=== PATIENT | male | born 1955 | race Caucasian/White ===

== ENCOUNTER 2016-02-09 18:17 | Inpatient (IN) | payer BC ==
[~2016-02-09] VITALS: Ht 167.6 cm; Wt 51.7 kg
[2016-02-09] MEDS ORDERED: IV NS 0.9% 1,000 ML ONE ×2 (19:18→20:02)
[2016-02-09] MEDS ORDERED: IV NS 0.9% 1,000 ML BAG IV ONE ×3 (19:30→21:30)
[2016-02-09 19:39] LABS: BASOPHILS % (AUTO) 0.2 % (0.0-2.0); DIFF TOTAL % 100 %; EOSINOPHILS % (AUTO) 0.3 % (0.0-6.0); HEMATOCRIT 29 % (39-51); HEMOGLOBIN 9.8 g/dL (13.5-17.5); LYMPHOCYTES # (AUTO) 0.8 /CMM (0.8-4.8); LYMPHOCYTES % (AUTO) 9.7 % (20.0-44.0); MEAN CORPUSCULAR HEMOGLOBIN 31 PG (26.0-33.0); MEAN CORPUSCULAR HGB CONC 34 g/dl (31.0-36.0); MEAN CORPUSCULAR VOLUME 91 fL (80-96); MONOCYTES # (AUTO) 0.3 /CMM (0.1-1.30); MONOCYTES % (AUTO) 4.1 % (2.0-12.0); NEUTROPHILS # (AUTO) 7.4 /CMM (1.8-8.9); NEUTROPHILS % (AUTO) 85.7 % (43.0-81.0); PLATELET COUNT (AUTO) 113 /CMM (150-450); RED BLOOD CELL COUNT(AUTO) 3.14 MIL/uL (4.5-6.0); WHITE BLOOD COUNT (AUTO) 8.5 K/uL (4.3-11.0)
[2016-02-09 19:52] LABS: ANION GAP 5 (5-14); CALCIUM, SERUM 7.9 mg/dL (8.5-10.1); CARBON DIOXIDE 35 mmol/L (21-32); CHLORIDE 116 mmol/L (98-107); CREATININE 0.5 mg/dL (0.6-1.3); GFR 170 mL/min (>60); GLUCOSE 98 mg/dL (74-106); POTASSIUM 3.8 mmol/L (3.5-5.1); SODIUM SERUM 152 mmol/L (136-145); UREA NITROGEN, BLOOD 37 mg/dL (7-18)
[2016-02-09 19:55] LABS: INR 1.03 (0.87-1.13); PROTHROMBIN TIME 10.8 SECS (9.5-12.7)
[2016-02-09 19:57] LABS: ALANINE AMINOTRANSFERASE 269 U/L (12-78); ALBUMIN 2.4 g/dL (3.4-5.0); ASPARTATE AMINOTRANSFERASE 125 U/L (15-37); BILIRUBIN,DIRECT 0.1 mg/dL (0.0-0.2); BILIRUBIN,TOTAL 0.2 mg/dL (0.2-1.0); INDIRECT BILIRUBIN 0.1 mg/dL (0.0-1.1); TOTAL PROTEIN, SERUM 4.7 g/dL (6.4-8.2)
[2016-02-09 19:59] LABS: TROPONIN I < 0.017 ng/mL (0.00-0.056)
[2016-02-09] MEDS ORDERED: IV SET PRIMARY 1 EA INFUS.SET MC ONE ×2 (20:02→21:11)
[2016-02-09 20:08] LABS: LACTIC ACID 0.7 mmol/L (0.4-2.0)
[2016-02-09 20:53] LABS: THYROID STIMULATING HORMONE 1.334 uIU/mL (0.358-3.74)
[2016-02-09] MEDS ORDERED: Z GUARD REMEDY 2 OZ OINT TP PRN (22:30)
[2016-02-09] MEDS ORDERED: HYDROCODONE/APAP 5/325MG 1 EACH TABLET PO PRN (22:30)
[2016-02-09] MEDS ORDERED: ZOLPIDEM TARTRATE 5 MG TABLET PO PRN (22:30)
[2016-02-09] MEDS ORDERED: ACETAMINOPHEN 325 MG TABLET PO PRN (22:30)
[2016-02-09] MEDS ORDERED: ONDANSETRON HCL/PF 4 MG/2 ML VIAL IVP PRN (22:30)
[2016-02-09] MEDS ORDERED: MAG HYDROX/AL HYDROX/SIMETH 30 ML UDC PO PRN (22:30)
[2016-02-09 23:39] LABS: ADD UA MICROSCOPIC NO; KETONES,URINE NEGATIVE (NEGATIVE); LEUKOCYTE ESTERASE ,URINE NEGATIVE (NEGATIVE)
[2016-02-09 23:52] LABS: PHENCYCLIDINE SCREEN,URINE NEGATIVE (NEGATIVE)
[2016-02-09 23:53] LABS: CANNABINOID, URINE POSITIVE (NEGATIVE)
[2016-02-10] VITALS (7 sets, daily range): BP systolic 84–130; BP diastolic 35–72
[2016-02-10] MEDS ORDERED: IV SET PRIMARY PUMP SET 1 EA INFUS.SET MC ONE ×2 (01:25→10:04)
[2016-02-10] MEDS ORDERED: IV D5/0.45 NACL 1,000 ML IV ONE (01:25)
[2016-02-10] MEDS: IV D5/0.45 NACL 1,000 ML IV PRN ×2 (01:36→17:17)
[2016-02-10] MEDS ORDERED: LEVO137T24 PO (02:00)
[2016-02-10 06:36] LABS: BASOPHILS % (AUTO) 0.2 % (0.0-2.0); DIFF TOTAL % 100 %; EOSINOPHILS % (AUTO) 0.6 % (0.0-6.0); HEMATOCRIT 28 % (39-51); HEMOGLOBIN 9.4 g/dL (13.5-17.5); LYMPHOCYTES # (AUTO) 0.9 /CMM (0.8-4.8); LYMPHOCYTES % (AUTO) 17.4 % (20.0-44.0); MEAN CORPUSCULAR HEMOGLOBIN 32 PG (26.0-33.0); MEAN CORPUSCULAR HGB CONC 34 g/dl (31.0-36.0); MEAN CORPUSCULAR VOLUME 92 fL (80-96); MONOCYTES # (AUTO) 0.4 /CMM (0.1-1.30); MONOCYTES % (AUTO) 6.6 % (2.0-12.0); NEUTROPHILS # (AUTO) 4.1 /CMM (1.8-8.9); NEUTROPHILS % (AUTO) 75.2 % (43.0-81.0); PLATELET COUNT (AUTO) 100 /CMM (150-450); WHITE BLOOD COUNT (AUTO) 5.4 K/uL (4.3-11.0)
[2016-02-10 07:02] LABS: CALCIUM, SERUM 7.8 mg/dL (8.5-10.1); CREATININE 0.6 mg/dL (0.6-1.3); PHOSPHORUS 2.8 mg/dL (2.5-4.9); POTASSIUM 3.7 mmol/L (3.5-5.1)
[2016-02-10] MEDS: PANTOPRAZOLE 40 MG TABLET.DR PO SCH (07:30)
[2016-02-10] MEDS ORDERED: LEVO88TA5 PO (08:19)
[2016-02-10] MEDS: ENOXAPARIN SODIUM 40 MG/0.4 ML DISP.SYRIN SQ SCH (09:30)
[2016-02-10] MEDS ORDERED: IV NS 0.9% 1,000 ML IV PRN (10:00)
[2016-02-10 21:18] LABS: ABG BASE EXCESS -0.8 mmol/L; ABG HCO3 26.8 mmol/L; ABG PCO2 57.6 mmHg (35.0-45.0); ABG PH 7.286 (7.350-7.450); ABG PO2 61.7 mmHg (75.0-100.0); ABG TOTAL HEMOGLOBIN 13.4 G/dL (13.5-18.0); ALLEN TEST Pass; O2Hb 86.6 % (94.0-97.0)
[2016-02-10] MEDS ORDERED: FUROSEMIDE 40 MG/4 ML VIAL IV STA (23:06)
[2016-02-10] MEDS ORDERED: FUROSEMIDE 40 MG/4 ML VIAL ONE (23:07)
[2016-02-10] MEDS ORDERED: IOHEXOL-350 100 ML VIAL IV ONE (23:58)
[2016-02-10] MEDS ORDERED: CT SWABBABLE VALVE TRANS SET 1 EA INFUS.SET MC ONE (23:58)
[2016-02-10] MEDS ORDERED: IV NS 0.9% 250 ML IV ONE (23:58)
[2016-02-11] VITALS (9 sets, daily range): BP systolic 84–142; BP diastolic 51–81
[2016-02-11] MEDS: IV D5/0.45 NACL 1,000 ML IV PRN (05:42)
[2016-02-11 06:17] LABS: DIFF TOTAL % 100 %; HEMATOCRIT 42 % (39-51); HEMOGLOBIN 13.6 g/dL (13.5-17.5); LYMPHOCYTES # (AUTO) 0.4 /CMM (0.8-4.8); LYMPHOCYTES % (AUTO) 8.3 % (20.0-44.0); MEAN CORPUSCULAR HEMOGLOBIN 30 PG (26.0-33.0); MEAN CORPUSCULAR HGB CONC 33 g/dl (31.0-36.0); MEAN CORPUSCULAR VOLUME 92 fL (80-96); MONOCYTES # (AUTO) 0.1 /CMM (0.1-1.30); MONOCYTES % (AUTO) 2.4 % (2.0-12.0); NEUTROPHILS # (AUTO) 4.6 /CMM (1.8-8.9); NEUTROPHILS % (AUTO) 89.3 % (43.0-81.0); PLATELET COUNT (AUTO) 137 /CMM (150-450); RED BLOOD CELL COUNT(AUTO) 4.53 MIL/uL (4.5-6.0); WHITE BLOOD COUNT (AUTO) 5.2 K/uL (4.3-11.0)
[2016-02-11 06:20] LABS: CALCIUM, SERUM 8.2 mg/dL (8.5-10.1); CREATININE 1.8 mg/dL (0.6-1.3); PHOSPHORUS 4.6 mg/dL (2.5-4.9); POTASSIUM 4.2 mmol/L (3.5-5.1)
[2016-02-11 06:25] LABS: PREALBUMIN 19.2 MG/DL (18.0-35.7)
[2016-02-11] MEDS: PANTOPRAZOLE 40 MG TABLET.DR PO SCH (08:28)
[2016-02-11] MEDS: ENOXAPARIN SODIUM 40 MG/0.4 ML DISP.SYRIN SQ SCH (08:28)
[2016-02-11] MEDS: LEVOTHYROXINE SODIUM 88 MCG TABLET PO SCH (08:28)
[2016-02-11] MEDS: IV D5W 1,000 ML IV PRN ×2 (09:48→22:03)
[2016-02-11 10:01] LABS: ABG BASE EXCESS -0.8 mmol/L; ABG HCO3 25.3 mmol/L; ABG PCO2 47.5 mmHg (35.0-45.0); ABG PH 7.344 (7.350-7.450); ABG PO2 76.6 mmHg (75.0-100.0); ALLEN TEST Pass; AaDO2 81.5 mmHg; O2Hb 93.1 % (94.0-97.0)
[2016-02-11] MEDS ORDERED: Magnesium 1 GM/2 ML VIAL IV ONE (10:30)
[2016-02-11] MEDS ORDERED: IV D5/0.45 NACL 1,000 ML IV PRN (10:30)
[2016-02-11] MEDS ORDERED: SECONDARY IV SET 1 EA INFUS.SET MC ONE ×3 (11:05→21:56)
[2016-02-11] MEDS: Magnesium 1GM/D5W 100ML PREMIX 100 ML IV SCH ×2 (11:10→12:15)
[2016-02-11] MEDS: PIPERACILLIN /TAZOBACTAM 2.25 G in IV D5W 50 ML IV SCH ×3 (13:51→23:40)
[2016-02-11 20:15] LABS: ABG BASE EXCESS -0.6 mmol/L; ABG HCO3 30.5 mmol/L; ABG PCO2 87.8 mmHg (35.0-45.0); ABG PH 7.158 (7.350-7.450); ABG PO2 81.2 mmHg (75.0-100.0); ABG TOTAL HEMOGLOBIN 12.9 G/dL (13.5-18.0); ALLEN TEST Pass
[2016-02-11] MEDS ORDERED: CEFTRIAXONE 1 G VIAL ONE (21:47)
[2016-02-11] MEDS ORDERED: IV D5W 100 ML IV ONE (21:48)
[2016-02-11] MEDS: CEFTRIAXONE 2 G in IV D5W 100 ML IV SCH (21:55)
[2016-02-11 22:56] LABS: ABG BASE EXCESS 1.2 mmol/L; ABG PCO2 61.7 mmHg (35.0-45.0); ABG PO2 83.2 mmHg (75.0-100.0); ABG TOTAL HEMOGLOBIN 12.3 G/dL (13.5-18.0); ALLEN TEST Pass; AaDO2 568.1 mmHg; O2Hb 93.4 % (94.0-97.0)
[2016-02-12] VITALS (7 sets, daily range): BP systolic 93–144; BP diastolic 53–76
[2016-02-12] MEDS: PIPERACILLIN /TAZOBACTAM 2.25 G in IV D5W 50 ML IV SCH ×3 (05:17→17:07)
[2016-02-12 05:55] LABS: BASOPHILS % (AUTO) 0.3 % (0.0-2.0); DIFF TOTAL % 100 %; EOSINOPHILS % (AUTO) 0.2 % (0.0-6.0); HEMATOCRIT 32 % (39-51); HEMOGLOBIN 10.8 g/dL (13.5-17.5); LYMPHOCYTES # (AUTO) 0.8 /CMM (0.8-4.8); LYMPHOCYTES % (AUTO) 12.5 % (20.0-44.0); MEAN CORPUSCULAR HEMOGLOBIN 30 PG (26.0-33.0); MEAN CORPUSCULAR HGB CONC 33 g/dl (31.0-36.0); MEAN CORPUSCULAR VOLUME 91 fL (80-96); MONOCYTES # (AUTO) 0.1 /CMM (0.1-1.30); MONOCYTES % (AUTO) 1.4 % (2.0-12.0); NEUTROPHILS # (AUTO) 5.8 /CMM (1.8-8.9); NEUTROPHILS % (AUTO) 85.6 % (43.0-81.0); PLATELET COUNT (AUTO) 117 /CMM (150-450); RED BLOOD CELL COUNT(AUTO) 3.55 MIL/uL (4.5-6.0); WHITE BLOOD COUNT (AUTO) 6.8 K/uL (4.3-11.0)
[2016-02-12 06:35] LABS: ALBUMIN 1.9 g/dL (3.4-5.0); BILIRUBIN,TOTAL 0.2 mg/dL (0.2-1.0); CALCIUM, SERUM 8.5 mg/dL (8.5-10.1); CREATININE 2.6 mg/dL (0.6-1.3); PHOSPHORUS 4.1 mg/dL (2.5-4.9); POTASSIUM 4.3 mmol/L (3.5-5.1); TOTAL PROTEIN, SERUM 5.2 g/dL (6.4-8.2)
[2016-02-12 07:08] LABS: ADD UA MICROSCOPIC NO; CREATININE, URINE 40.8 MG/DL (30.0-125.0); KETONES,URINE NEGATIVE (NEGATIVE); LEUKOCYTE ESTERASE ,URINE NEGATIVE (NEGATIVE); URINE TOTAL PROTEIN 15.6 mg/dL (0-11.9)
[2016-02-12] MEDS: LEVOTHYROXINE SODIUM 88 MCG TABLET PO SCH (07:30)
[2016-02-12] MEDS: PANTOPRAZOLE 40 MG TABLET.DR PO SCH (07:30)
[2016-02-12] MEDS: ENOXAPARIN SODIUM 40 MG/0.4 ML DISP.SYRIN SQ SCH (08:50)
[2016-02-12 09:11] LABS: ABG BASE EXCESS 1.5 mmol/L; ABG HCO3 27.2 mmol/L; ABG PCO2 47.4 mmHg (35.0-45.0); ABG PH 7.376 (7.350-7.450); ABG PO2 63.1 mmHg (75.0-100.0); ABG TOTAL HEMOGLOBIN 11.5 G/dL (13.5-18.0); AaDO2 240.1 mmHg
[2016-02-12] MEDS: IV D5W 1,000 ML IV PRN (11:21)
[2016-02-12] MEDS ORDERED: SECONDARY IV SET 1 EA INFUS.SET MC ONE (12:29)
[2016-02-12] MEDS: ALBUMIN 25% 25 GM in PREMIX 1 EA IV SCH ×2 (13:16→17:52)
[2016-02-12] MEDS: CEFTRIAXONE 2 G in IV D5W 100 ML IV SCH (22:02)
[2016-02-13] VITALS: BP_SYST 114; BP_SYST 123; BP_DIAS 56; BP_DIAS 64
[2016-02-13] MEDS: PIPERACILLIN /TAZOBACTAM 2.25 G in IV D5W 50 ML IV SCH ×2 (00:01→05:00)
[2016-02-13] MEDS: ALBUMIN 25% 25 GM in PREMIX 1 EA IV SCH ×2 (00:01→05:00)
[2016-02-13] MEDS: IV D5W 1,000 ML IV PRN ×2 (02:45→21:50)
[2016-02-13 04:00] VITALS: BP 139/70
[2016-02-13 07:35] LABS: CALCIUM, SERUM 8.8 mg/dL (8.5-10.1); CREATININE 1.8 mg/dL (0.6-1.3); PHOSPHORUS 3.2 mg/dL (2.5-4.9)
[2016-02-13 07:42] LABS: BASOPHILS % (AUTO) 0.3 % (0.0-2.0); DIFF TOTAL % 100 %; EOSINOPHILS % (AUTO) 0.7 % (0.0-6.0); HEMATOCRIT 27 % (39-51); HEMOGLOBIN 9.1 g/dL (13.5-17.5); LYMPHOCYTES # (AUTO) 0.6 /CMM (0.8-4.8); LYMPHOCYTES % (AUTO) 11.6 % (20.0-44.0); MEAN CORPUSCULAR HEMOGLOBIN 31 PG (26.0-33.0); MEAN CORPUSCULAR HGB CONC 34 g/dl (31.0-36.0); MEAN CORPUSCULAR VOLUME 92 fL (80-96); MONOCYTES # (AUTO) 0.3 /CMM (0.1-1.30); MONOCYTES % (AUTO) 5.4 % (2.0-12.0); NEUTROPHILS # (AUTO) 4.2 /CMM (1.8-8.9); PLATELET COUNT (AUTO) 86 /CMM (150-450); RED BLOOD CELL COUNT(AUTO) 2.92 MIL/uL (4.5-6.0); WHITE BLOOD COUNT (AUTO) 5.2 K/uL (4.3-11.0)
[2016-02-13 07:48] LABS: POTASSIUM 3.3 mmol/L (3.5-5.1)
[2016-02-13 08:00] VITALS: BP 100/61
[2016-02-13] MEDS: PANTOPRAZOLE 40 MG TABLET.DR PO SCH (08:00)
[2016-02-13] MEDS: LEVOTHYROXINE SODIUM 88 MCG TABLET PO SCH (08:01)
[2016-02-13] MEDS: ENOXAPARIN SODIUM 40 MG/0.4 ML DISP.SYRIN SQ SCH (08:02)
[2016-02-13 08:43] LABS: ABG BASE EXCESS 3.9 mmol/L; ABG HCO3 30.5 mmol/L; ABG PCO2 57.5 mmHg (35.0-45.0); ABG PH 7.343 (7.350-7.450); ABG PO2 219.4 mmHg (75.0-100.0); ABG TOTAL HEMOGLOBIN 9.5 G/dL (13.5-18.0); ALLEN TEST Pass; AaDO2 436.1 mmHg
[2016-02-13] MEDS: ACETYLCYSTEINE 20% SOLN 800 MG/4 ML VIAL NEB SCH ×2 (09:31→15:07)
[2016-02-13] MEDS: ALBUTEROL FS 2.5 MG/0.5 ML VIAL.NEB NEB PRN ×2 (09:31→15:07)
[2016-02-13] MEDS: IPRATROPIUM NEB FS 0.5 MG/2.5 ML AMPUL.NEB NEB PRN ×2 (09:31→15:08)
[2016-02-13] MEDS ORDERED: SECONDARY IV SET 1 EA INFUS.SET MC ONE (10:08)
[2016-02-13 10:09] LABS: IRON, SERUM 25 ug/dl (50-175); PERCENT SATURATION 22 % (14-33); TOTAL IRON BINDING CAPACITY 113 ug/dl (250-450)
[2016-02-13] MEDS: POTASSIUM CL. PREMIX PERIPHER. 50 ML IV SCH ×2 (10:11→11:03)
[2016-02-13 10:15] LABS: TROPONIN I < 0.017 ng/mL (0.00-0.056)
[2016-02-13 11:10] LABS: BAND % (MANUAL) 9 % (0.0-5.0); EOSINOPHILS % (MANUAL) 1 % (0-4); LYMPHOCYTES % (MANUAL) 28 % (16-48); METAMYELOCYTES % 4 % (0-0)
[2016-02-13 11:11] LABS: ANISOCYTOSIS 2+; OVALOCYTES 1+; PLATELET ESTIMATE DECREASED
[2016-02-13] MEDS ORDERED: FEE PK DOSING 1 MIN EA MC ONE (11:52)
[2016-02-13 12:00] VITALS: BP 114/65
[2016-02-13] MEDS ORDERED: VANCOMYCIN 1 GM in IV D5W 250 ML IV SCH (12:00)
[2016-02-13] MEDS: PIPERACILLIN /TAZOBACTAM 3.375 G in IV D5W 50 ML IV SCH ×2 (12:18→17:10)
[2016-02-13 13:23] LABS: *SPE ALBUMIN 2.2 g/dL (2.9-4.4)
[2016-02-13 16:00] VITALS: BP 116/80
[2016-02-13 20:00] VITALS: BP 114/56
[2016-02-13] MEDS ORDERED: IV SET PRIMARY PUMP SET 1 EA INFUS.SET MC ONE (20:05)
[2016-02-14] VITALS: BP 115/52
[2016-02-14] MEDS: ALBUTEROL FS 2.5 MG/0.5 ML VIAL.NEB NEB PRN ×4 (00:10→23:33)
[2016-02-14] MEDS: ACETYLCYSTEINE 20% SOLN 800 MG/4 ML VIAL NEB SCH ×4 (00:10→23:34)
[2016-02-14] MEDS: PIPERACILLIN /TAZOBACTAM 3.375 G in IV D5W 50 ML IV SCH ×4 (00:19→18:24)
[2016-02-14 04:00] VITALS: BP 156/63
[2016-02-14] MEDS: VANCOMYCIN 0.75 GM in IV D5W 250 ML IV SCH (07:00)
[2016-02-14 07:03] LABS: BASOPHILS % (AUTO) 0.3 % (0.0-2.0); DIFF TOTAL % 100 %; EOSINOPHILS # (AUTO) 0.1 /CMM (0.0-0.7); EOSINOPHILS % (AUTO) 1.7 % (0.0-6.0); HEMATOCRIT 27 % (39-51); HEMOGLOBIN 9.1 g/dL (13.5-17.5); LYMPHOCYTES # (AUTO) 0.6 /CMM (0.8-4.8); LYMPHOCYTES % (AUTO) 8.8 % (20.0-44.0); MEAN CORPUSCULAR HEMOGLOBIN 31 PG (26.0-33.0); MEAN CORPUSCULAR HGB CONC 34 g/dl (31.0-36.0); MEAN CORPUSCULAR VOLUME 92 fL (80-96); MONOCYTES # (AUTO) 0.4 /CMM (0.1-1.30); MONOCYTES % (AUTO) 5.8 % (2.0-12.0); NEUTROPHILS # (AUTO) 5.9 /CMM (1.8-8.9); NEUTROPHILS % (AUTO) 83.4 % (43.0-81.0); PLATELET COUNT (AUTO) 85 /CMM (150-450); RED BLOOD CELL COUNT(AUTO) 2.93 MIL/uL (4.5-6.0); WHITE BLOOD COUNT (AUTO) 7.1 K/uL (4.3-11.0)
[2016-02-14 07:21] LABS: CALCIUM, SERUM 8.7 mg/dL (8.5-10.1); PHOSPHORUS 4.7 mg/dL (2.5-4.9); POTASSIUM 3.6 mmol/L (3.5-5.1)
[2016-02-14] MEDS: LEVOTHYROXINE SODIUM 88 MCG TABLET PO SCH (07:30)
[2016-02-14] MEDS: PANTOPRAZOLE 40 MG TABLET.DR PO SCH (07:30)
[2016-02-14 08:00] VITALS: BP 125/74
[2016-02-14] MEDS: IV D5W 1,000 ML IV PRN ×2 (08:44→20:16)
[2016-02-14] MEDS: ENOXAPARIN SODIUM 40 MG/0.4 ML DISP.SYRIN SQ SCH (08:54)
[2016-02-14 09:10] LABS: ANISOCYTOSIS 2+; BAND % (MANUAL) 16 % (0.0-5.0); EOSINOPHILS % (MANUAL) 2 % (0-4); LYMPHOCYTES % (MANUAL) 7 % (16-48); PLATELET ESTIMATE DECREASED
[2016-02-14 11:23] LABS: PTH, INTACT 36 pg/mL (15-65)
[2016-02-14 12:00] VITALS: BP 124/69
[2016-02-14] MEDS: LANOLIN/MIN OIL/PETROLAT,WHT 3.5 GM TUBE EACHEYE PRN (14:24)
[2016-02-14] MEDS: ENOXAPARIN SODIUM 30 MG/0.3 ML DISP.SYRIN SQ SCH (15:00)
[2016-02-14] MEDS ORDERED: ACETYLCYSTEINE 20% SOLN 800 MG/4 ML VIAL NEB SCH (15:30)
[2016-02-14 16:00] VITALS: BP 107/62
[2016-02-14 20:00] VITALS: BP 122/63
[2016-02-14] MEDS: IPRATROPIUM NEB FS 0.5 MG/2.5 ML AMPUL.NEB NEB PRN (23:33)
[2016-02-15] VITALS: BP 123/65
[2016-02-15] MEDS: VANCOMYCIN 0.75 GM in IV D5W 250 ML IV SCH ×2
[2016-02-15] MEDS: PIPERACILLIN /TAZOBACTAM 3.375 G in IV D5W 50 ML IV SCH ×3 (00:38→11:34)
[2016-02-15 04:00] VITALS: BP 137/76
[2016-02-15] MEDS: ALBUTEROL FS 2.5 MG/0.5 ML VIAL.NEB NEB PRN ×2 (07:11→15:26)
[2016-02-15] MEDS: ACETYLCYSTEINE 20% SOLN 800 MG/4 ML VIAL NEB SCH ×3 (07:11→23:44)
[2016-02-15] MEDS: LEVOTHYROXINE SODIUM 88 MCG TABLET PO SCH (07:30)
[2016-02-15] MEDS: PANTOPRAZOLE 40 MG TABLET.DR PO SCH (07:30)
[2016-02-15 08:00] VITALS: BP_SYST 114; BP_SYST 137; BP_DIAS 67; BP_DIAS 76
[2016-02-15 09:03] LABS: CALCIUM, SERUM 8.7 mg/dL (8.5-10.1); CREATININE 3.7 mg/dL (0.6-1.3); POTASSIUM 3.3 mmol/L (3.5-5.1)
[2016-02-15] MEDS: IV D5W 1,000 ML IV PRN (11:35)
[2016-02-15 12:00] VITALS: BP 108/58
[2016-02-15] MEDS: MEROPENEM 500 MG in IV NS 0.9% 50 ML IV SCH ×2 (13:18→23:28)
[2016-02-15] MEDS ORDERED: SECONDARY IV SET 1 EA INFUS.SET MC ONE ×3 (13:19→23:15)
[2016-02-15] MEDS: ENOXAPARIN SODIUM 30 MG/0.3 ML DISP.SYRIN SQ SCH (15:35)
[2016-02-15 16:00] VITALS: BP 104/62
[2016-02-15] MEDS ORDERED: VANCOMYCIN 0.75 GM in IV D5W 250 ML IV SCH (18:00)
[2016-02-15 18:39] LABS: KETONES,URINE NEGATIVE (NEGATIVE); LEUKOCYTE ESTERASE ,URINE NEGATIVE (NEGATIVE); PH,URINE 7.5 (5.0-8.0)
[2016-02-15 18:42] LABS: CREATININE, URINE 28.6 MG/DL (30.0-125.0); URINE TOTAL PROTEIN 10.9 mg/dL (0-11.9)
[2016-02-15 18:58] LABS: ADD UA MICROSCOPIC YES
[2016-02-15 19:23] LABS: ADD URINE CULTURE NO; WBC,URINE 0-2 /HPF (0-3)
[2016-02-15 20:00] VITALS: BP 137/62
[2016-02-15] MEDS: POTASSIUM CL. PREMIX PERIPHER. 50 ML IV SCH ×2 (21:03→22:50)
[2016-02-16] VITALS: BP 104/46
[2016-02-16 04:00] VITALS: BP 103/50
[2016-02-16] MEDS: IV D5W 1,000 ML IV PRN ×2 (05:52→23:37)
[2016-02-16] MEDS: ACETYLCYSTEINE 20% SOLN 800 MG/4 ML VIAL NEB SCH ×3 (07:28→23:59)
[2016-02-16] MEDS: LEVOTHYROXINE SODIUM 88 MCG TABLET PO SCH (07:30)
[2016-02-16] MEDS: PANTOPRAZOLE 40 MG TABLET.DR PO SCH (07:30)
[2016-02-16 07:38] LABS: CALCIUM, SERUM 8.7 mg/dL (8.5-10.1); CREATININE 4.4 mg/dL (0.6-1.3); POTASSIUM 3.6 mmol/L (3.5-5.1)
[2016-02-16 08:00] VITALS: BP 122/69
[2016-02-16] MEDS ORDERED: VANCOMYCIN 0.75 GM in IV D5W 250 ML IV SCH (09:00)
[2016-02-16 12:00] VITALS: BP 110/67
[2016-02-16 12:13] LABS: ABG BASE EXCESS 1.2 mmol/L; ABG HCO3 26.4 mmol/L; ABG PCO2 44.6 mmHg (35.0-45.0); ABG PO2 77.2 mmHg (75.0-100.0); ABG TOTAL HEMOGLOBIN 10.8 G/dL (13.5-18.0); ALLEN TEST Pass; AaDO2 98.8 mmHg
[2016-02-16] MEDS: MEROPENEM 500 MG in IV NS 0.9% 50 ML IV SCH ×2 (12:16→23:25)
[2016-02-16] MEDS: ENOXAPARIN SODIUM 30 MG/0.3 ML DISP.SYRIN SQ SCH (15:40)
[2016-02-16 16:00] VITALS: BP 117/63
[2016-02-16 17:50] LABS: BASOPHILS % (AUTO) 0.2 % (0.0-2.0); DIFF TOTAL % 100 %; EOSINOPHILS # (AUTO) 0.2 /CMM (0.0-0.7); EOSINOPHILS % (AUTO) 2.1 % (0.0-6.0); HEMATOCRIT 31 % (39-51); HEMOGLOBIN 10.3 g/dL (13.5-17.5); LYMPHOCYTES # (AUTO) 0.8 /CMM (0.8-4.8); LYMPHOCYTES % (AUTO) 8.2 % (20.0-44.0); MEAN CORPUSCULAR HEMOGLOBIN 31 PG (26.0-33.0); MEAN CORPUSCULAR HGB CONC 34 g/dl (31.0-36.0); MEAN CORPUSCULAR VOLUME 91 fL (80-96); MONOCYTES # (AUTO) 0.3 /CMM (0.1-1.30); MONOCYTES % (AUTO) 3.4 % (2.0-12.0); NEUTROPHILS # (AUTO) 8.6 /CMM (1.8-8.9); NEUTROPHILS % (AUTO) 86.1 % (43.0-81.0); PLATELET COUNT (AUTO) 192 /CMM (150-450); RED BLOOD CELL COUNT(AUTO) 3.37 MIL/uL (4.5-6.0)
[2016-02-16 17:52] LABS: INR 1.03 (0.87-1.13); PROTHROMBIN TIME 11.1 SECS (9.5-12.7)
[2016-02-16 20:00] VITALS: BP 117/68
[2016-02-16] MEDS ORDERED: SECONDARY IV SET 1 EA INFUS.SET MC ONE (23:21)
[2016-02-16] MEDS: IPRATROPIUM NEB FS 0.5 MG/2.5 ML AMPUL.NEB NEB PRN (23:59)
[2016-02-17] VITALS: BP 106/57
[2016-02-17 04:00] VITALS: BP 120/55
[2016-02-17] MEDS: PANTOPRAZOLE 40 MG TABLET.DR PO SCH (06:42)
[2016-02-17] MEDS: LEVOTHYROXINE SODIUM 88 MCG TABLET PO SCH (06:42)
[2016-02-17 07:19] LABS: CREATININE 2.3 mg/dL (0.6-1.3); POTASSIUM 3.2 mmol/L (3.5-5.1)
[2016-02-17] MEDS: ALBUTEROL FS 2.5 MG/0.5 ML VIAL.NEB NEB PRN ×2 (07:58→13:45)
[2016-02-17] MEDS: ACETYLCYSTEINE 20% SOLN 800 MG/4 ML VIAL NEB SCH ×3 (07:58→23:01)
[2016-02-17 08:00] VITALS: BP 131/70
[2016-02-17 12:00] VITALS: BP 106/47
[2016-02-17] MEDS: MEROPENEM 500 MG in IV NS 0.9% 50 ML IV SCH (12:29)
[2016-02-17] MEDS ORDERED: IV SET PRIMARY PUMP SET 1 EA INFUS.SET MC ONE (13:23)
[2016-02-17] MEDS: POTASSIUM CL. PREMIX PERIPHER. 50 ML IV SCH ×3 (13:26→15:10)
[2016-02-17] MEDS: VANCOMYCIN 0.75 GM in IV D5W 250 ML IV SCH (14:07)
[2016-02-17] MEDS: IV D5W 1,000 ML IV PRN (14:07)
[2016-02-17] MEDS: ENOXAPARIN SODIUM 30 MG/0.3 ML DISP.SYRIN SQ SCH (15:11)
[2016-02-17 16:00] VITALS: BP 125/67
[2016-02-17 20:00] VITALS: BP 141/58
[2016-02-17] MEDS: IPRATROPIUM NEB FS 0.5 MG/2.5 ML AMPUL.NEB NEB PRN (23:01)
[2016-02-18] VITALS: BP_SYST 100; BP_SYST 115; BP_SYST 135; BP_DIAS 46; BP_DIAS 59; BP_DIAS 63
[2016-02-18] MEDS: MEROPENEM 500 MG in IV NS 0.9% 50 ML IV SCH ×2 (00:42→12:55)
[2016-02-18 04:00] VITALS: BP 101/60
[2016-02-18] MEDS: IV D5W 1,000 ML IV PRN (05:30)
[2016-02-18 06:23] LABS: BASOPHILS % (AUTO) 0.3 % (0.0-2.0); DIFF TOTAL % 100 %; EOSINOPHILS # (AUTO) 0.1 /CMM (0.0-0.7); EOSINOPHILS % (AUTO) 1.9 % (0.0-6.0); HEMATOCRIT 31 % (39-51); HEMOGLOBIN 10.3 g/dL (13.5-17.5); LYMPHOCYTES # (AUTO) 0.8 /CMM (0.8-4.8); LYMPHOCYTES % (AUTO) 10.9 % (20.0-44.0); MEAN CORPUSCULAR HEMOGLOBIN 31 PG (26.0-33.0); MEAN CORPUSCULAR HGB CONC 34 g/dl (31.0-36.0); MEAN CORPUSCULAR VOLUME 91 fL (80-96); MONOCYTES # (AUTO) 0.5 /CMM (0.1-1.30); MONOCYTES % (AUTO) 6.5 % (2.0-12.0); NEUTROPHILS # (AUTO) 5.8 /CMM (1.8-8.9); NEUTROPHILS % (AUTO) 80.4 % (43.0-81.0); PLATELET COUNT (AUTO) 263 /CMM (150-450); RED BLOOD CELL COUNT(AUTO) 3.37 MIL/uL (4.5-6.0); WHITE BLOOD COUNT (AUTO) 7.2 K/uL (4.3-11.0)
[2016-02-18 07:02] LABS: CALCIUM, SERUM 8.8 mg/dL (8.5-10.1); CREATININE 1.3 mg/dL (0.6-1.3); PHOSPHORUS 3.3 mg/dL (2.5-4.9); POTASSIUM 3.8 mmol/L (3.5-5.1)
[2016-02-18] MEDS: ACETYLCYSTEINE 20% SOLN 800 MG/4 ML VIAL NEB SCH ×3 (07:14→23:37)
[2016-02-18 08:00] VITALS: BP 117/69
[2016-02-18] MEDS: LEVOTHYROXINE SODIUM 88 MCG TABLET PO SCH (09:06)
[2016-02-18] MEDS: PANTOPRAZOLE 40 MG TABLET.DR PO SCH (09:07)
[2016-02-18 09:09] LABS: ABG BASE EXCESS 4.3 mmol/L; ABG HCO3 30.9 mmol/L; ABG PCO2 56.8 mmHg (35.0-45.0); ABG PH 7.354 (7.350-7.450); ABG PO2 83.4 mmHg (75.0-100.0); ALLEN TEST Pass; AaDO2 78.3 mmHg; O2Hb 94.1 % (94.0-97.0)
[2016-02-18 12:00] VITALS: BP_SYST 105; BP_SYST 123; BP_DIAS 61; BP_DIAS 75
[2016-02-18] MEDS: VANCOMYCIN 0.75 GM in IV D5W 250 ML IV SCH (14:47)
[2016-02-18] MEDS: ENOXAPARIN SODIUM 30 MG/0.3 ML DISP.SYRIN SQ SCH (14:53)
[2016-02-18] MEDS: LANOLIN/MIN OIL/PETROLAT,WHT 3.5 GM TUBE EACHEYE PRN (14:55)
[2016-02-18 16:00] VITALS: BP 138/70
[2016-02-18 20:00] VITALS: BP 135/63
[2016-02-18] MEDS: IPRATROPIUM NEB FS 0.5 MG/2.5 ML AMPUL.NEB NEB PRN (23:36)
[2016-02-18] MEDS: ALBUTEROL FS 2.5 MG/0.5 ML VIAL.NEB NEB PRN (23:36)
[2016-02-19] VITALS: BP 115/59
[2016-02-19] MEDS: MEROPENEM 500 MG in IV NS 0.9% 50 ML IV SCH ×2 (00:45→12:40)
[2016-02-19] MEDS: IV D5W 1,000 ML IV PRN ×2 (00:46→15:28)
[2016-02-19 04:00] VITALS: BP 134/62
[2016-02-19] MEDS: ACETYLCYSTEINE 20% SOLN 800 MG/4 ML VIAL NEB SCH ×3 (07:35→23:57)
[2016-02-19 08:00] VITALS: BP 114/62
[2016-02-19] MEDS: LEVOTHYROXINE SODIUM 88 MCG TABLET PO SCH (09:00)
[2016-02-19] MEDS: PANTOPRAZOLE 40 MG TABLET.DR PO SCH (09:00)
[2016-02-19 09:30] LABS: CALCIUM, SERUM 8.8 mg/dL (8.5-10.1); CREATININE 0.7 mg/dL (0.6-1.3); POTASSIUM 3.4 mmol/L (3.5-5.1)
[2016-02-19 12:00] VITALS: BP 137/62
[2016-02-19] MEDS: IPRATROPIUM NEB FS 0.5 MG/2.5 ML AMPUL.NEB NEB PRN (15:19)
[2016-02-19] MEDS: ALBUTEROL FS 2.5 MG/0.5 ML VIAL.NEB NEB PRN (15:19)
[2016-02-19] MEDS: ENOXAPARIN SODIUM 30 MG/0.3 ML DISP.SYRIN SQ SCH (15:27)
[2016-02-19] MEDS: VANCOMYCIN 0.75 GM in IV D5W 250 ML IV SCH (15:28)
[2016-02-19] MEDS ORDERED: POTASSIUM CHLORIDE 20 MEQ TAB.PRT.SR PO SCH (15:30)
[2016-02-19 16:00] VITALS: BP_SYST 115; BP_DIAS 46; BP_DIAS 64
[2016-02-19 20:00] VITALS: BP 114/61
[2016-02-20] VITALS: BP 109/54
[2016-02-20] MEDS ORDERED: VANCOMYCIN 0.75 GM in IV D5W 250 ML IV SCH (02:00)
[2016-02-20 04:00] VITALS: BP 157/61
[2016-02-20] MEDS: IV D5W 1,000 ML IV PRN ×2 (05:45→16:30)
[2016-02-20] MEDS: ACETYLCYSTEINE 20% SOLN 800 MG/4 ML VIAL NEB SCH ×3 (07:35→23:30)
[2016-02-20 08:00] VITALS: BP 133/71
[2016-02-20] MEDS: IPRATROPIUM NEB FS 0.5 MG/2.5 ML AMPUL.NEB NEB PRN ×2 (08:01→15:41)
[2016-02-20] MEDS: ALBUTEROL FS 2.5 MG/0.5 ML VIAL.NEB NEB PRN ×3 (08:01→23:30)
[2016-02-20] MEDS: PANTOPRAZOLE 40 MG TABLET.DR PO SCH (08:13)
[2016-02-20] MEDS: LEVOTHYROXINE SODIUM 88 MCG TABLET PO SCH (08:13)
[2016-02-20 08:14] LABS: CALCIUM, SERUM 8.4 mg/dL (8.5-10.1); CREATININE 0.8 mg/dL (0.6-1.3); POTASSIUM 3.3 mmol/L (3.5-5.1)
[2016-02-20 12:00] VITALS: BP 138/68
[2016-02-20] MEDS ORDERED: POTASSIUM CHLORIDE 20 MEQ POWDER PACKET PO ONE (12:30)
[2016-02-20 16:00] VITALS: BP 129/71
[2016-02-20] MEDS: ENOXAPARIN SODIUM 30 MG/0.3 ML DISP.SYRIN SQ SCH (16:31)
[2016-02-20 20:00] VITALS: BP 123/61
[2016-02-21] VITALS (8 sets, daily range): BP systolic 89–153; BP diastolic 47–86
[2016-02-21] MEDS: IV D5W 1,000 ML IV PRN ×2 (03:53→12:05)
[2016-02-21] MEDS: ACETYLCYSTEINE 20% SOLN 800 MG/4 ML VIAL NEB SCH ×3 (07:38→23:18)
[2016-02-21] MEDS: ALBUTEROL FS 2.5 MG/0.5 ML VIAL.NEB NEB PRN ×3 (07:38→23:17)
[2016-02-21] MEDS: IPRATROPIUM NEB FS 0.5 MG/2.5 ML AMPUL.NEB NEB PRN ×2 (07:38→15:30)
[2016-02-21 07:57] LABS: BASOPHILS % (AUTO) 0.2 % (0.0-2.0); DIFF TOTAL % 100 %; EOSINOPHILS # (AUTO) 0.2 /CMM (0.0-0.7); EOSINOPHILS % (AUTO) 1.9 % (0.0-6.0); HEMATOCRIT 30 % (39-51); HEMOGLOBIN 10.1 g/dL (13.5-17.5); LYMPHOCYTES # (AUTO) 1.1 /CMM (0.8-4.8); LYMPHOCYTES % (AUTO) 10.3 % (20.0-44.0); MEAN CORPUSCULAR HEMOGLOBIN 31 PG (26.0-33.0); MEAN CORPUSCULAR HGB CONC 34 g/dl (31.0-36.0); MEAN CORPUSCULAR VOLUME 91 fL (80-96); MONOCYTES # (AUTO) 0.5 /CMM (0.1-1.30); MONOCYTES % (AUTO) 4.4 % (2.0-12.0); NEUTROPHILS # (AUTO) 8.9 /CMM (1.8-8.9); NEUTROPHILS % (AUTO) 83.2 % (43.0-81.0); PLATELET COUNT (AUTO) 493 /CMM (150-450); RED BLOOD CELL COUNT(AUTO) 3.32 MIL/uL (4.5-6.0); WHITE BLOOD COUNT (AUTO) 10.6 K/uL (4.3-11.0)
[2016-02-21 08:16] LABS: CALCIUM, SERUM 8.6 mg/dL (8.5-10.1); PHOSPHORUS 3.7 mg/dL (2.5-4.9); POTASSIUM 3.9 mmol/L (3.5-5.1)
[2016-02-21] MEDS: PANTOPRAZOLE 40 MG TABLET.DR PO SCH (09:05)
[2016-02-21] MEDS: LEVOTHYROXINE SODIUM 88 MCG TABLET PO SCH (09:05)
[2016-02-21 10:06] LABS: ABG BASE EXCESS 10.1 mmol/L; ABG HCO3 35.6 mmol/L; ABG PCO2 53.4 mmHg (35.0-45.0); ABG PH 7.442 (7.350-7.450); ABG PO2 89.2 mmHg (75.0-100.0); ABG TOTAL HEMOGLOBIN 9.8 G/dL (13.5-18.0); ALLEN TEST Pass; AaDO2 83.7 mmHg; O2Hb 94.8 % (94.0-97.0)
[2016-02-21] MEDS ORDERED: SECONDARY IV SET 1 EA INFUS.SET MC ONE (11:23)
[2016-02-21] MEDS: Magnesium 1GM/D5W 100ML PREMIX 100 ML IV SCH ×2 (12:05→15:23)
[2016-02-21] MEDS: ENOXAPARIN SODIUM 30 MG/0.3 ML DISP.SYRIN SQ SCH (18:22)
[2016-02-21] MEDS: LANOLIN/MIN OIL/PETROLAT,WHT 3.5 GM TUBE EACHEYE PRN (18:26)
[2016-02-22] VITALS: BP 123/65
[2016-02-22] MEDS: IV D5W 1,000 ML IV PRN ×2 (02:17→17:22)
[2016-02-22 04:00] VITALS: BP 132/59
[2016-02-22 06:53] LABS: BASOPHILS % (AUTO) 0.1 % (0.0-2.0); DIFF TOTAL % 100 %; EOSINOPHILS # (AUTO) 0.1 /CMM (0.0-0.7); EOSINOPHILS % (AUTO) 1.1 % (0.0-6.0); HEMATOCRIT 30 % (39-51); HEMOGLOBIN 9.9 g/dL (13.5-17.5); LYMPHOCYTES # (AUTO) 1.3 /CMM (0.8-4.8); LYMPHOCYTES % (AUTO) 11.5 % (20.0-44.0); MEAN CORPUSCULAR HEMOGLOBIN 30 PG (26.0-33.0); MEAN CORPUSCULAR HGB CONC 33 g/dl (31.0-36.0); MEAN CORPUSCULAR VOLUME 91 fL (80-96); MONOCYTES # (AUTO) 0.3 /CMM (0.1-1.30); NEUTROPHILS # (AUTO) 9.4 /CMM (1.8-8.9); NEUTROPHILS % (AUTO) 84.3 % (43.0-81.0); PLATELET COUNT (AUTO) 484 /CMM (150-450); RED BLOOD CELL COUNT(AUTO) 3.26 MIL/uL (4.5-6.0); WHITE BLOOD COUNT (AUTO) 11.1 K/uL (4.3-11.0)
[2016-02-22 07:39] LABS: CALCIUM, SERUM 8.6 mg/dL (8.5-10.1); PHOSPHORUS 4.4 mg/dL (2.5-4.9); POTASSIUM 3.9 mmol/L (3.5-5.1)
[2016-02-22] MEDS: ACETYLCYSTEINE 20% SOLN 800 MG/4 ML VIAL NEB SCH ×3 (07:50→23:28)
[2016-02-22 08:00] VITALS: BP 155/86
[2016-02-22] MEDS: PANTOPRAZOLE 40 MG TABLET.DR PO SCH (08:11)
[2016-02-22] MEDS: LEVOTHYROXINE SODIUM 88 MCG TABLET PO SCH (08:11)
[2016-02-22 13:58] VITALS: BP 98/62
[2016-02-22 16:00] VITALS: BP 110/74
[2016-02-22] MEDS: ENOXAPARIN SODIUM 30 MG/0.3 ML DISP.SYRIN SQ SCH (17:15)
[2016-02-22] MEDS: MAGNESIUM HYDROXIDE 30 ML UDC PO PRN (17:22)
[2016-02-22] MEDS: SENNOSIDES/DOCUSATE SODIUM 1 TAB TABLET PO SCH (17:30)
[2016-02-22 20:00] VITALS: BP 94/38
[2016-02-22] MEDS: TAMSULOSIN 0.4 MG CAP.SR.24H PO SCH (22:26)
[2016-02-23] VITALS: BP 150/58
[2016-02-23 04:00] VITALS: BP 100/53
[2016-02-23] MEDS: LEVOTHYROXINE SODIUM 88 MCG TABLET PO SCH (07:36)
[2016-02-23] MEDS: PANTOPRAZOLE 40 MG TABLET.DR PO SCH (07:39)
[2016-02-23 08:00] VITALS: BP 96/50
[2016-02-23] MEDS: SENNOSIDES/DOCUSATE SODIUM 1 TAB TABLET PO SCH (08:02)
[2016-02-23] MEDS: ACETYLCYSTEINE 20% SOLN 800 MG/4 ML VIAL NEB SCH ×3 (08:25→23:20)
[2016-02-23] MEDS: IPRATROPIUM NEB FS 0.5 MG/2.5 ML AMPUL.NEB NEB PRN ×2 (08:30→16:00)
[2016-02-23] MEDS: ALBUTEROL FS 2.5 MG/0.5 ML VIAL.NEB NEB PRN ×2 (08:30→16:00)
[2016-02-23] MEDS ORDERED: PANT40TA2 PO (10:55)
[2016-02-23] MEDS ORDERED: ALBU2.5V13 NEB (10:55)
[2016-02-23] MEDS ORDERED: TAMS-12 PO (10:55)
[2016-02-23] MEDS ORDERED: SENN1TAB6 PO (10:55)
[2016-02-23] MEDS ORDERED: ENOX30DI SQ (10:55)
[2016-02-23] MEDS ORDERED: Ipratropium Bromide NEB (10:55)
[2016-02-23 12:00] VITALS: BP 97/53
[2016-02-23 16:00] VITALS: BP_SYST 126; BP_SYST 127; BP_DIAS 56; BP_DIAS 77
[2016-02-23] MEDS: ENOXAPARIN SODIUM 30 MG/0.3 ML DISP.SYRIN SQ SCH (16:19)
[2016-02-23 20:00] VITALS: BP 103/52
[2016-02-23] MEDS: TAMSULOSIN 0.4 MG CAP.SR.24H PO SCH (21:52)
[2016-02-24 04:00] VITALS: BP_SYST 110; BP_SYST 140; BP_DIAS 69
[2016-02-24] MEDS: PANTOPRAZOLE 40 MG TABLET.DR PO SCH (06:08)
[2016-02-24] MEDS: LEVOTHYROXINE SODIUM 88 MCG TABLET PO SCH (06:08)
[2016-02-24 08:00] VITALS: BP 120/60
[2016-02-24] MEDS: ACETYLCYSTEINE 20% SOLN 800 MG/4 ML VIAL NEB SCH ×3 (08:07→23:18)
[2016-02-24] MEDS: ALBUTEROL FS 2.5 MG/0.5 ML VIAL.NEB NEB PRN ×2 (08:10→23:18)
[2016-02-24] MEDS: IPRATROPIUM NEB FS 0.5 MG/2.5 ML AMPUL.NEB NEB PRN (08:10)
[2016-02-24] MEDS: SENNOSIDES/DOCUSATE SODIUM 1 TAB TABLET PO SCH (09:00)
[2016-02-24 16:00] VITALS: BP 94/62
[2016-02-24] MEDS: ENOXAPARIN SODIUM 30 MG/0.3 ML DISP.SYRIN SQ SCH (16:36)
[2016-02-24 20:00] VITALS: BP 103/52
[2016-02-24] MEDS: TAMSULOSIN 0.4 MG CAP.SR.24H PO SCH (21:52)
[2016-02-25] VITALS: BP 107/50
[2016-02-25 04:00] VITALS: BP 107/50
[2016-02-25 08:00] VITALS: BP 120/63
[2016-02-25] MEDS: IPRATROPIUM NEB FS 0.5 MG/2.5 ML AMPUL.NEB NEB PRN ×2 (08:55→23:35)
[2016-02-25] MEDS: ACETYLCYSTEINE 20% SOLN 800 MG/4 ML VIAL NEB SCH ×3 (08:55→23:35)
[2016-02-25] MEDS: ALBUTEROL FS 2.5 MG/0.5 ML VIAL.NEB NEB PRN (08:55)
[2016-02-25] MEDS: SENNOSIDES/DOCUSATE SODIUM 1 TAB TABLET PO SCH (09:21)
[2016-02-25] MEDS: LEVOTHYROXINE SODIUM 88 MCG TABLET PO SCH (09:21)
[2016-02-25] MEDS: PANTOPRAZOLE 40 MG TABLET.DR PO SCH (09:21)
[2016-02-25 16:00] VITALS: BP 126/57
[2016-02-25] MEDS: ENOXAPARIN SODIUM 30 MG/0.3 ML DISP.SYRIN SQ SCH (16:57)
[2016-02-25] MEDS: TAMSULOSIN 0.4 MG CAP.SR.24H PO SCH (21:00)
[2016-02-25] MEDS: MAGNESIUM HYDROXIDE 30 ML UDC PO PRN (21:26)
[2016-02-26] VITALS: BP 125/71
[2016-02-26] MEDS: ALBUTEROL FS 2.5 MG/0.5 ML VIAL.NEB NEB PRN (07:50)
[2016-02-26] MEDS: ACETYLCYSTEINE 20% SOLN 800 MG/4 ML VIAL NEB SCH ×2 (07:50→16:10)
[2016-02-26] MEDS: IPRATROPIUM NEB FS 0.5 MG/2.5 ML AMPUL.NEB NEB PRN (07:50)
[2016-02-26 08:00] VITALS: BP 118/63
[2016-02-26] MEDS: LEVOTHYROXINE SODIUM 88 MCG TABLET PO SCH (09:47)
[2016-02-26] MEDS: PANTOPRAZOLE 40 MG TABLET.DR PO SCH (09:47)
[2016-02-26] MEDS: SENNOSIDES/DOCUSATE SODIUM 1 TAB TABLET PO SCH (09:47)
[2016-02-26] MEDS ORDERED: HYDROGEL DRESSING 90 GM TUBE TP PRN (12:30)
[2016-02-26 16:00] VITALS: BP 122/66
[2016-02-26] MEDS: ACIDOPHILUS/BULGARICUS 1 EACH TAB.CHEW PO SCH (16:41)
[2016-02-26] MEDS: HYDROGEL DRESSING 90 GM TUBE TP SCH (16:42)
[2016-02-26] MEDS: ENOXAPARIN SODIUM 30 MG/0.3 ML DISP.SYRIN SQ SCH (16:46)
[2016-02-26 20:00] VITALS: BP 110/53
[2016-02-26] MEDS: AMOX/CLAVULANATE 875 MG TABLET PO SCH (21:07)
[2016-02-26] MEDS: TAMSULOSIN 0.4 MG CAP.SR.24H PO SCH (21:09)
[2016-02-27] MEDS: IPRATROPIUM NEB FS 0.5 MG/2.5 ML AMPUL.NEB NEB PRN (00:07)
[2016-02-27] MEDS: ACETYLCYSTEINE 20% SOLN 800 MG/4 ML VIAL NEB SCH ×4 (00:07→23:34)
[2016-02-27 04:00] VITALS: BP 122/46
[2016-02-27 08:00] VITALS: BP 113/53
[2016-02-27] MEDS: PANTOPRAZOLE 40 MG TABLET.DR PO SCH (08:53)
[2016-02-27] MEDS: LEVOTHYROXINE SODIUM 88 MCG TABLET PO SCH (08:53)
[2016-02-27] MEDS: AMOX/CLAVULANATE 875 MG TABLET PO SCH ×2 (08:53→21:44)
[2016-02-27] MEDS: ACIDOPHILUS/BULGARICUS 1 EACH TAB.CHEW PO SCH ×3 (08:53→17:11)
[2016-02-27] MEDS: SENNOSIDES/DOCUSATE SODIUM 1 TAB TABLET PO SCH (08:54)
[2016-02-27] MEDS: HYDROGEL DRESSING 90 GM TUBE TP SCH (08:56)
[2016-02-27] MEDS: SALINE NASAL SPRAY 0.65% 1 BOTTLE BOTTLE NS PRN ×2 (13:02→17:12)
[2016-02-27 16:00] VITALS: BP 131/66
[2016-02-27] MEDS: ENOXAPARIN SODIUM 40 MG/0.4 ML DISP.SYRIN SQ SCH (17:31)
[2016-02-27 20:00] VITALS: BP 112/50
[2016-02-27] MEDS ORDERED: AMOX/CLAVULANATE 875 MG TABLET ONE (21:38)
[2016-02-27] MEDS: TAMSULOSIN 0.4 MG CAP.SR.24H PO SCH (21:44)
[2016-02-27] MEDS: ALBUTEROL FS 2.5 MG/0.5 ML VIAL.NEB NEB PRN (23:34)
[2016-02-28 04:00] VITALS: BP 130/64
[2016-02-28] MEDS: ACETYLCYSTEINE 20% SOLN 800 MG/4 ML VIAL NEB SCH ×2 (07:32→15:23)
[2016-02-28] MEDS: IPRATROPIUM NEB FS 0.5 MG/2.5 ML AMPUL.NEB NEB PRN ×2 (07:32→15:23)
[2016-02-28] MEDS: ALBUTEROL FS 2.5 MG/0.5 ML VIAL.NEB NEB PRN ×2 (07:32→15:23)
[2016-02-28 08:00] VITALS: BP 122/66
[2016-02-28] MEDS: LEVOTHYROXINE SODIUM 88 MCG TABLET PO SCH (09:02)
[2016-02-28] MEDS: ACIDOPHILUS/BULGARICUS 1 EACH TAB.CHEW PO SCH ×3 (09:02→18:26)
[2016-02-28] MEDS: LANOLIN/MIN OIL/PETROLAT,WHT 3.5 GM TUBE EACHEYE PRN (09:03)
[2016-02-28] MEDS: SENNOSIDES/DOCUSATE SODIUM 1 TAB TABLET PO SCH (09:03)
[2016-02-28] MEDS: AMOX/CLAVULANATE 875 MG TABLET PO SCH ×2 (09:03→21:20)
[2016-02-28] MEDS: PANTOPRAZOLE 40 MG TABLET.DR PO SCH (09:03)
[2016-02-28] MEDS: HYDROGEL DRESSING 90 GM TUBE TP SCH (09:04)
[2016-02-28] MEDS: BOOST PLUS FOOD-CHOCLATE 237 ML BOX PO SCH ×2 (10:54→18:27)
[2016-02-28 16:00] VITALS: BP 125/58
[2016-02-28 20:00] VITALS: BP 106/49
[2016-02-28] MEDS: TAMSULOSIN 0.4 MG CAP.SR.24H PO SCH (21:20)
[2016-02-28] MEDS: ENOXAPARIN SODIUM 40 MG/0.4 ML DISP.SYRIN SQ SCH (21:20)
== END 2016-02-28 23:00 | DRG 682 ==
LOC: ER 18:21 → TELE-TD 23:30 → ICU 02-11 07:33 → TELE-TD 02-11 10:47 → TELE1 02-20 12:00 → MEDSG1 02-23 08:49
PROVIDERS: ADMIT Internal Medicine; ATTEND Internal Medicine
PROC: 5A09557 Assistance with Respiratory Ventilation, Greater than 96 Consecutive Hours, Continuous Positive Airway Pressure (ICD-10-PCS; principal; 2016-02-10)
DX: N17.0 Acute kidney failure with tubular necrosis (principal); J69.0 Pneumonitis due to inhalation of food and vomit; J96.02 Acute respiratory failure with hypercapnia; J96.01 Acute respiratory failure with hypoxia; K72.00 Acute and subacute hepatic failure without coma; E87.0 Hyperosmolality and hypernatremia; E44.0 Moderate protein-calorie malnutrition; J90 Pleural effusion, not elsewhere classified; E75.29 Other sphingolipidosis; J98.11 Atelectasis; N13.30 Unspecified hydronephrosis; E86.0 Dehydration; D63.8 Anemia in other chronic diseases classified elsewhere; E03.9 Hypothyroidism, unspecified; R00.1 Bradycardia, unspecified; Z86.73 Personal history of transient ischemic attack (TIA), and cerebral infarction without residual deficits; Z87.891 Personal history of nicotine dependence; R55 Syncope and collapse; I95.9 Hypotension, unspecified; E87.6 Hypokalemia; E88.09 Other disorders of plasma-protein metabolism, not elsewhere classified; R33.9 Retention of urine, unspecified; J01.90 Acute sinusitis, unspecified; K59.00 Constipation, unspecified; Z86.14 Personal history of Methicillin resistant Staphylococcus aureus infection; Z91.81 History of falling
CPT/HCPCS: 31720; 36415; 36600; 70450-TC; 71010-TC; 74000-TC; 80048-TC; 80053-TC; 80061-TC; 80076-TC; 80202-TC; 81000-TC; 82272-TC; 82550-TC; 82570-TC; 82803-TC; 82962-TC; 83540-TC; 83605-TC; 83735-TC; 83970; 84100-TC; 84134-TC; 84155; 84155-TC; 84165; 84300-TC; 84443-TC; 84484-TC; 85025-TC; 85378-TC; 85610-TC; 85730-TC; 87040-TC; 87070-TC; 87081-TC; 92526; 92611-TC; 93307-TC; 93880-TC; 94640-TC; 94660; 94668-TC; 94799-TC; 97001-TC; 97110-TC; 97116-TC; 97530-TC; A4216; A4349; A4606; A4623; A6248; G0434; J0696; J1650; J1940; J2185; J2543; J3370; J3475; J3480; J3490; J7030; J7050; J7060; J7070; P9047; Q9967; Z7610